=== PATIENT | female | born 1955 | race Caucasian/White ===

== ENCOUNTER → 2025-03-25 | Emergency (ER) | payer MEDICARE ==
[~2025-03-25] MED LIST: Aspirin Chewable 81 MG TAB ONE; Metoprolol Tartrate 5 MG (5 mL) VIAL ONE
[2025-03-25 16:24] LABS: #Basophils Less than 0.03 10x3/uL (0.0-0.2); #Eosinophils 0.10 10x3/uL (0.0-0.5); #Monocytes 0.58 10x3/uL (0.0-1.1); #Neutrophils 3.46 10x3/uL (1.5-8.4); %Basophils 0.4 % (0.0-2.0); %Eosinophils 2.0 % (0.0-6.0); %Lymphocytes 17.4 % (18.0-47.0); %Monocytes 11.5 % (0.0-10.0); %Neutrophils 68.3 % (40.0-75.0); Hematocrit 38.4 % (34.9-44.5); Hemoglobin 12.7 g/dL (12.0-15.5); Mean Corpuscular Hemoglobin 32.6 pg (27.0-33.0); Mean Corpuscular Volume 98.5 fL (81.6-98.3); Platelet Count 222 10x3/uL (150-450); Red Blood Cell (RBC) Count 3.90 10x6/uL (3.90-5.03); White Blood Cell (WBC) Count 5.06 10x3/uL (3.5-10.5)
[2025-03-25 16:31] LABS: Glucose, Urine (Dipstick) Normal (Negative); Leukocyte Negative (Negative); Protein, Urine (Dipstick) 15 mg/dl (Neg-Trace); Specific Gravity, Urine 1.010 (1.005-1.030)
[2025-03-25 16:39] LABS: ALT (SGPT) 24 U/L (Less than 34); AST (SGOT) 52 U/L (11-34); Albumin 3.6 g/dL (3.1-4.5); Alkaline Phosphatase 69 U/L (40-110); Anion Gap 13 mmol/L (10-20); BUN (Urea Nitrogen) 16 mg/dL (9.8-20.1); Bilirubin, Total 0.4 mg/dL (0.3-1.2); Calc. Creatinine Clearance 0 mL/min (70-130); Calcium 8.6 mg/dL (7.8-10.44); Carbon Dioxide 24 mmol/L (23-31); Chloride 107 mmol/L (98-107); Globulin 2.7 g/dL (2.4-3.5); Glucose 92 mg/dL (80-115); Magnesium 1.9 mg/dL (1.6-2.6); Potassium 4.1 mmol/L (3.5-5.1); Sodium 140 mmol/L (136-145)
[2025-03-25 16:39] LABS: Cocaine Metabolite Screen Negative (Negative); THC/Cannabinoid Screen Negative (Negative); Tricyclic Screen Negative (Negative)
[2025-03-25 16:40] LABS: Acetaminophen Less than 10 mcg/mL (Less than 10); Salicylate Less than 8.0 mg/dL (Less than 8.0)
[2025-03-25 16:41] LABS: CAUTI Indications for Culture Alt mental st,lethar; RBC/HPF 0-3 HPF (0-3); WBC/HPF 0-3 HPF (0-3)
[2025-03-25 16:42] LABS: Mucous/LPF Rare LPF (<2+)
[2025-03-25 16:43] LABS: Urine Culture Reflex No No
[2025-03-25 16:46] LABS: Troponin I 0.084 ng/mL (< 0.028)
== END ==
LOC: CSHERS 15:14
DX: R41.82 Altered mental status, unspecified (principal); R79.89 Other specified abnormal findings of blood chemistry; R29.701 NIHSS score 1; F17.210 Nicotine dependence, cigarettes, uncomplicated
CPT/HCPCS: 70450; 71045; 80053; 80306; 80307; 81001; 83605; 83735; 84484; 85025; 93005; 96374